=== PATIENT | male | born 1930 | race Caucasian/White ===

== ENCOUNTER → 2016-12-15 | Outpatient (CLI) | payer OTHER ==
[~2016-12-15] MED LIST: ALBUAER INH; CMD3 PO; CPR500 PO; FLM4 PO; LISI-461 PO; LRT5 PO; ONDA4TAB46 PO; PHEN-674 PO; ROSU20TA PO; SYMIN160 INH; TIOTCAP INH
== END | disposition home or self-care (01) ==
LOC: C.LABSPEC 15:28
PROVIDERS: ATTEND Urology
DX: R31.9 Hematuria, unspecified (principal)

== ENCOUNTER → 2017-01-17 | Outpatient (CLI) | payer OTHER ==
[~2017-01-17] MED LIST changes: +DUTA0.5C PO; +FINA1TAB36
== END | disposition home or self-care (01) ==
LOC: C.LABSPEC 17:10 → C.PATHSPEC 17:11
PROVIDERS: ATTEND Urology
DX: N32.0 Bladder-neck obstruction (principal)